=== PATIENT | female | born 1955 | race Caucasian/White ===

== ENCOUNTER → 2018-10-31 | Outpatient (CLI) | payer BC ==
--- NOTE | 2018-11-04 09:37 | MM ---
Reason for exam: screening (asymptomatic). Last mammogram was performed 2 years and 7 months ago. History: Patient is postmenopausal and had first child at age 32. Family history of breast cancer in maternal grandmother and breast cancer in paternal grandmother. Taking unspecified hormones for 1 year beginning at age 50. Physical Findings: A clinical breast exam by your physician is recommended on an annual basis and results should be correlated with mammographic findings. MG Screening Mammo w CAD Bilateral CC and MLO view(s) were taken. Prior study comparison: March 29, 2016, bilateral MG screening mammo w CAD. May 30, 2013, bilateral digital screening mammo w/CAD. The breast tissue is heterogeneously dense. This may lower the sensitivity of mammography. No significant changes when compared with prior studies. ASSESSMENT: Negative, BI-RAD 1 RECOMMENDATION: Routine screening mammogram of both breasts in 1 year.
== END | disposition home or self-care (01) ==
LOC: RADMAMWWP 07:08
PROVIDERS: ATTEND Internal Medicine
DX: Z12.31 Encounter for screening mammogram for malignant neoplasm of breast (principal)
CPT/HCPCS: 77067

== ENCOUNTER → 2021-12-14 | Outpatient (CLI) | payer BC ==
--- NOTE | 2021-12-16 18:50 | MM ---
Reason for Exam: Screening (asymptomatic). Last mammogram was performed 3 year(s) and 1 month(s) ago. Patient History: Menarche at age 11. First Full-Term at age 32. Late child-bearing (after 30). Postmenopausal. Unspecified Hormone, starting at age 50 for 1 year. Paternal grandmother had breast cancer. Maternal grandmother had breast cancer. Risk Values: Evi 5 year model risk: 2.3%. NCI Lifetime model risk: 7.9%. Prior Study Comparison: 05/30/2013 Bilateral Screening Mammogram, [facility]. 03/29/2016 Bilateral Screening Mammogram, [facility]. 10/31/2018 Bilateral Screening Mammogram, [facility]. Tissue Density: The breast tissue is heterogeneously dense. This may lower the sensitivity of mammography. Findings: Analyzed By CAD. There is no suspicious group of microcalcifications or new suspicious mass in either breast. Overall Assessment: Negative, BI-RAD 1 Management: Screening Mammogram of both breasts in 1 year. A clinical breast exam by your physician is recommended on an annual basis and results should be correlated with mammographic findings. Electronically signed and approved by: Omar Sutherland DO
== END | disposition home or self-care (01) ==
LOC: RADMAMWWP 13:19
PROVIDERS: ATTEND Family Medicine
DX: Z12.31 Encounter for screening mammogram for malignant neoplasm of breast (principal); Z80.3 Family history of malignant neoplasm of breast; Z78.0 Asymptomatic menopausal state
CPT/HCPCS: 77063; 77067

== ENCOUNTER → 2024-03-14 | Outpatient (CLI) | payer BC ==
--- NOTE | 2024-03-14 23:55 | BD ---
EXAMINATION TYPE: Axial Bone Density DATE OF EXAM: 03/14/2024 CLINICAL HISTORY: 68 years old Female. ICD-10 CODE: Z78.0 Postmenopausal , Additional History: Height: 69 Weight: 179.9 FRAX RISK QUESTIONS: Alcohol (3 or more units per day): no Family History (Parent hip fracture): father Glucocorticoids (More than 3mos): no (Ex: prednisone, prednisolone, methylprednisolone, dexamethasone, and hydrocortisone). History of Fracture in Adulthood: no Secondary Osteoporosis: 1. Type 1 Diabetes: no 2. Hyperthyroidism: no 3. Menopause before 45: no 4. Malnutrition: no 5. Chronic liver disease: no Rheumatoid Arthritis: no Current Tobacco Use: no RISK FACTORS HISTORY OF: Hip Fracture (Right/Left): no Spine Fracture: no History of Wrist Fracture: no Surgery to Spine/Hip(right/left)/Wrist (right/left): no MEDICATIONS: Thyroid Medications: no Osteoporosis Medications: no EXAM MEASUREMENTS: Bone mineral densitometry was performed using the [employer]ahu System. Bone mineral density as measured about the Lumbar spine is: ----- L1-L4(G/cm2): 1.539 T Score Values are as follows: ----- L1: 1.8 ----- L2: 2.25 ----- L3: 3.4 ----- L4: 4.2 ----- L1-L4: 3.0 Z Score Values are as follows: ----- L1: 2.9 ----- L2: 3.3 ----- L3: 4.5 ----- L4: 5.3 ----- L1-L4: 4.1 Baseline Study Bone mineral density about the R hip (g/cm2): 0.999 Bone mineral density about the L hip (g/cm2): 1.039 T Score values are as follows: -----R Neck: 0.8 -----L Neck: 0.4 -----R Total: -0.1 -----L Total: 0.3 Z Score values are as follows: -----R Neck: 2.1 -----L Neck: 1.7 -----R Total: 1.0 -----L Total: 1.3 Baseline Study FRAX%s: The graph provided illustrates a 6.6% chance for a major osteoporotic fx and a 0.2% chance fo r the hips probability for fx in 10 years time. IMPRESSION: Normal (Values between +1 and -1 indicate normal bone mass). Consider repeating this study in 5 year s or sooner if there is some new clinical indication. NOTE: T-SCORE=SD OF THE YOUNG ADULT MEAN. [facility], , 03/14/2024 11:52 PM
--- NOTE | 2024-03-16 03:03 | MM ---
Reason for Exam: Screening (asymptomatic). Last mammogram was performed 2 year(s) and 3 month(s) ago. Patient History: Menarche at age 11. First Full-Term at age 32. Late child-bearing (after 30). Postmenopausal. Patient has history of breast feeding. Unspecified Hormone, starting at age 50 for 1 year. Paternal grandmother had breast cancer. Maternal grandmother had breast cancer. Risk Values: Evi 5 year model risk: 2.4%. NCI Lifetime model risk: 7.3%. Prior Study Comparison: 03/29/2016 Bilateral Screening Mammogram, [facility]. 10/31/2018 Bilateral Screening Mammogram, [facility]. 12/14/2021 Bilateral MG 3D screening mammo w/cad, [facility]. Tissue Density: The breasts are heterogeneously dense, which may obscure small masses. Findings: Analyzed By CAD. The pattern is symmetrical. Pattern is stable. There may be increasing punctate calcifications in the upper outer posterior right breast. Evaluation recommended. Left breast:No suspicious groups of microcalcifications, spiculated or lobular masses, architectural distortion or other secondary signs of malignancy are mammographically apparent. Overall Assessment: Incomplete: need additional imaging evaluation, BI-RAD 0 Management: Diagnostic Mammogram of the right breast. A negative mammogram report should not preclude additional follow up of suspicious palpable abnormalities. Patient should continue monthly self breast exam. A clinical breast exam by your physician is recommended on an annual basis and results should be correlated with mammographic findings. Note on Evi scores and lifetime risk: 1. A Evi score greater than 3% is considered moderate risk. If this is the case, consider specialist referral to assess eligibility for a risk reducing agent. 2. If overall lifetime risk for the development of breast cancer is 20% or higher, the patient may qualify for future screening with alternating mammogram and breast MRI. [facility], , 03/16/2024 3:00 AM. Electronically signed and approved by: Dejon Wolfe D.O. Radiologis
== END | disposition home or self-care (01) ==
LOC: RADBDWWP 14:10
PROVIDERS: ATTEND Obstetrics & Gynecology
DX: Z12.31 Encounter for screening mammogram for malignant neoplasm of breast (principal); R92.333 Mammographic heterogeneous density, bilateral breasts; Z78.0 Asymptomatic menopausal state; Z80.3 Family history of malignant neoplasm of breast
CPT/HCPCS: 77063; 77067; 77080

== ENCOUNTER → 2024-03-27 | Outpatient (CLI) | payer BC ==
--- NOTE | 2024-03-27 11:14 | MM ---
Reason for Exam: Additional evaluation requested from abnormal screening. Last screening mammogram was performed less than 1 month ago. Patient History: Menarche at age 11. First Full-Term at age 32. Late child-bearing (after 30). Postmenopausal. Patient has history of breast feeding. Unspecified Hormone, starting at age 50 for 1 year. Paternal grandmother had breast cancer. Maternal grandmother had breast cancer. Risk Values: Evi 5 year model risk: 2.4%. NCI Lifetime model risk: 7.3%. Prior Study Comparison: 05/30/2013 Bilateral Screening Mammogram, [facility]. 03/29/2016 Bilateral Screening Mammogram, [facility]. 10/31/2018 Bilateral Screening Mammogram, [facility]. 12/14/2021 Bilateral MG 3D screening mammo w/cad, [facility]. 03/14/2024 Bilateral MG 3D screening mammo w/cad, [facility]. Tissue Density: Right: The breasts are heterogeneously dense, which may obscure small masses. Findings: Analyzed By CAD. There is a small grouped 11 to 12:00 posterior calcification which appears punctate on magnification views and only minimally increased from prior exams. The other area of grouped calcifications are located far posteriorly at the 9:00 position. On the lateral view, the calcifications project over the pectoralis muscle. Punctate and slightly heterogeneous appearance. Given location, short interval follow-up is recommended rather than any intervention at this time. Overall Assessment: Probably benign, BI-RAD 3 Management: Diagnostic Mammogram of the right breast in 6 months. The ability to perform stereotactic core needle biopsy or needle localization for these far posterior calcifications will be limited. Results were given to the patient verbally at the time of exam. [facility], , 03/27/2024 11:11 AM. Electronically signed and approved by: Noe Locke M.D. Radiologist
== END | disposition home or self-care (01) ==
LOC: RADMAMWWP 10:08
PROVIDERS: ATTEND Obstetrics & Gynecology
DX: R92.8 Other abnormal and inconclusive findings on diagnostic imaging of breast (principal); Z78.0 Asymptomatic menopausal state; Z80.3 Family history of malignant neoplasm of breast; R92.331 Mammographic heterogeneous density, right breast
CPT/HCPCS: 77061; 77065